=== PATIENT | female | born 1955 | race Caucasian/White ===

== ENCOUNTER → 2016-11-28 | Outpatient (CLI) | payer BC | LOC: CT 08:48 | DX: C56.2 Malignant neoplasm of left ovary (principal); C77.5 Secondary and unspecified malignant neoplasm of intrapelvic lymph nodes; C77.4 Secondary and unspecified malignant neoplasm of inguinal and lower limb lymph nodes; C77.2 Secondary and unspecified malignant neoplasm of intra-abdominal lymph nodes; R19.00 Intra-abdominal and pelvic swelling, mass and lump, unspecified site; R59.0 Localized enlarged lymph nodes; E27.8 Other specified disorders of adrenal gland | CPT/HCPCS: 71260; J7050; Q9962 ==

== ENCOUNTER 2017-03-20 14:35 | Emergency (ER) | payer BC ==
[2017-03-20 16:58] LABS: HEMOGLOBIN 13.6 gm/dl (12.3-15.3); RED BLOOD COUNT 4.03 M/UL (4.00-5.10); WHITE BLOOD COUNT 12.7 K/UL (4.5-11.0)
[2017-03-20 18:54] LABS: BUN/CREATININE RATIO 29 (0-10)
== END 2017-03-20 22:05 | disposition other institution (70) ==
LOC: ER1 14:35
PROVIDERS: Emergency Medicine
DX: R42 Dizziness and giddiness (principal); C79.31 Secondary malignant neoplasm of brain; Z85.43 Personal history of malignant neoplasm of ovary; Z87.891 Personal history of nicotine dependence; Z90.710 Acquired absence of both cervix and uterus
CPT/HCPCS: 36415; 70496; 70498; 80053; 84484; 85025; 93005; 96374; 96375; 96376; 99285; J2060; J2405; J3360; J7030; J7050; Q9963